=== PATIENT | male | born 1990 | race Hispanic/Latino ===

== ENCOUNTER 2017-01-19 02:00 | Emergency (ER) | payer OTHER ==
[2017-01-19] MEDS ORDERED: ZOFRAN ODT ONE (02:06)
[2017-01-19] MEDS ORDERED: ZOFRAN ODT PO ONE (02:10)
--- NOTE | 2017-01-19 04:46 | Cat Scan Report ---
FINAL REPORT PROCEDURE: CT HEAD/BRAIN WO CON TECHNIQUE: Computerized tomography of the head was performed without contrast material. HISTORY: Impact, N V, Vision issues, dizzy COMPARISON: No prior studies are available for comparison. FINDINGS: Skull and scalp: There is no skull fracture. There is right periorbital soft tissue swelling.. Paranasal sinuses: Normal. Ventricles and subarachnoid spaces: Normal. Cerebrum: No evidence of hemorrhage, acute infarction or mass . Cerebellum and brainstem: No evidence of hemorrhage, acute infarction or mass. Vasculature: Normal. Comments: None. IMPRESSION: There is right periorbital soft tissue swelling. There is no skull fracture. There is no intracranial hemorrhage.
--- NOTE | 2017-01-19 04:53 | Cat Scan Report ---
FINAL REPORT PROCEDURE: CT FACIAL BONES WO CON TECHNIQUE: Computerized tomography of the facial bones and soft tissues with axial and coronal sections performed from the cranial aspect of the frontal sinuses to the caudal portion of the mandible without contrast material. HISTORY: Impact, N V, Vision issues, dizzy COMPARISON: No prior studies are available for comparison. FINDINGS: Bones: No significant abnormality. Paranasal sinuses: There is mild mucosal thickening of the floor of the maxillary sinuses. There are no air-fluid levels.. Soft tissues: There is right periorbital soft tissue swelling.. Other: None. IMPRESSION: There is right periorbital soft tissue swelling. There is no orbital injury. There is no bony abnormality. The sinuses are clear.
--- NOTE | 2017-01-19 04:58 | Cat Scan Report ---
FINAL REPORT PROCEDURE: CT CERVICAL SPINE WO CON TECHNIQUE: Computerized tomography of the cervical spine was performed from the skull base to T1 without contrast material. HISTORY: Impact, N V, Vision issues, dizzy COMPARISON: No prior studies are available for comparison. FINDINGS: C1-2: No significant abnormality. C2-3: No significant abnormality. C3-4: No significant abnormality. C4-5: No significant abnormality. C5-6: No significant abnormality. C6-7: No significant abnormality. C7-T1: No significant abnormality. Other: There are no fractures or malalignments. The disc spaces are normal. The facet joints are intact. The prevertebral soft tissues are normal in thickness.. IMPRESSION: No significant abnormality.
[2017-01-19] MEDS ORDERED: NORCO 5/325 PO ONE (06:58)
--- NOTE | 2017-01-19 07:02 | Emergency Department Report ---
ED Head Trauma HPI - General Chief complaint: Head Injury Stated complaint: HEAD INJURY Time Seen by Provider: 01/19/17 06:51 Source: patient, RN notes reviewed Mode of arrival: Ambulatory Limitations: No Limitations - History of Present Illness Initial comments: 26-year-old male presents to the emergency department after sustaining a head injury at work. Patient does not recall the incident. He states he was told that he was struck in head by a power line. There was no loss of consciousness. Patient states he has vomited a couple of times. He reports feeling dizzy and has slightly blurred vision. He is complaining of headache, pain over his right eye, and neck pain. There are no other complaints. MD Complaint: head injury -: Sudden, During the night Mechanism of Injury: work related injury Location: face Loss of Consciousness: no Previous Trauma to this Area: No Place: work Radiation: none Severity: moderate Severity scale (0 -10): 4 Quality: aching Consistency: constant Provoking factors: none known Other Injuries: none Associated Symptoms: amnesia, vision changes, nausea, vomiting - Related Data Previous Rx's Medication Instructions Recorded Last Taken Type HYDROcodone/APAP 5-325 [[place] 1 each PO Q6HR #20 tablet 01/19/17 Unknown Rx 5-325 mg TAB] Allergies/Adverse reactions: Allergies Allergy/AdvReac Type Severity Reaction Status Date / Time fresh fruit Allergy Swelling Uncoded 01/19/17 02:13 yellow jackets Allergy Swelling Uncoded 01/19/17 02:13 ED Review of Systems ROS: Stated complaint: HEAD INJURY Other details as noted in HPI Comment: All other systems reviewed and negative Eyes: vision change Gastrointestinal: nausea, vomiting Musculoskeletal: other (neck pain) Neurological: headache, other (dizziness) ED Past Medical Hx - Past Medical History Previous Medical History?: No - Surgical History Past Surgical History?: Yes Additional Surgical History: Shoulder, Mouth, Face - Family History Family history: no significant - Social History Smoking Status: Never Smoker Substance Use Type: Alcohol - Medications Home Medications: Home Medications Medication Instructions Recorded Confirmed Last Taken Type HYDROcodone/APAP 5-325 [[place] 1 each PO Q6HR #20 tablet 01/19/17 Unknown Rx 5-325 mg TAB] ED Physical Exam - General Limitations: No Limitations General appearance: alert, in no apparent distress - Head Head exam: Present: atraumatic, normocephalic - Eye Eye exam: Present: normal appearance, PERRL, EOMI, other (approximately 1 cm laceration noted to the lateral aspect of the right upper eyelid. Wound edges appear to have spontaneously closed. There is no bleeding.) - ENT ENT exam: Present: normal exam, normal orophraynx, mucous membranes moist - Neck Neck exam: Present: normal inspection, full ROM. Absent: tenderness - Respiratory Respiratory exam: Present: normal lung sounds bilaterally. Absent: respiratory distress - Cardiovascular Cardiovascular Exam: Present: regular rate, normal rhythm, normal heart sounds - GI/Abdominal GI/Abdominal exam: Present: soft, normal bowel sounds. Absent: distended, tenderness - Extremities Exam Extremities exam: Present: normal inspection, full ROM. Absent: tenderness - Back Exam Back exam: Present: normal inspection, full ROM. Absent: tenderness - Neurological Exam Neurological exam: Present: alert, oriented X3. Absent: motor sensory deficit - Skin Skin exam: Present: warm, dry, intact ED Course Vital Signs 01/19/17 01/19/17 01/19/17 02:00 05:28 05:30 Temperature 97.6 F Pulse Rate 66 58 L 59 L Respiratory 16 9 L 12 Rate Blood Pressure 94/58 92/59 Blood Pressure 139/86 [Right] O2 Sat by Pulse 99 98 97 Oximetry 01/19/17 01/19/17 05:39 06:00 Temperature 97.7 F Pulse Rate 63 Respiratory 18 13 Rate Blood Pressure 102/49 Blood Pressure [Right] O2 Sat by Pulse 99 96 Oximetry - Radiology Data Radiology results: report reviewed, image reviewed CT of the head, facial bones, and cervical spine reveal soft tissue swelling over the right eye. There is no fracture or intracranial hemorrhage. - Medical Decision Making Imaging results reviewed and discussed with the patient. Giving medication for pain. Patient will be discharged home at this time with head injury precautions. He is instructed not to return to work until his headache and dizziness have resolved. - Differential Diagnosis fracture, closed head injury Critical care attestation.: If time is entered above; I have spent that time in minutes in the direct care of this critically ill patient, excluding procedure time. ED Disposition Clinical Impression: Closed head injury with concussion Qualifiers: Encounter type: initial encounter Loss of consciousness presence/duration: without LOC Qualified Code(s): S06.0X0A - Concussion without loss of consciousness, initial encounter Disposition: TO HOME OR SELFCARE Is pt being admited?: No Condition: Stable Instructions: Concussion (ED) Prescriptions: HYDROcodone/APAP 5-325 [[place] 5-325 mg TAB] 1 each PO Q6HR #20 tablet Referrals: PRIMARY CARE, [Primary Care Provider] - 3-5 Days Forms: Work/School Release Form(ED) Time of Disposition: 07:05
[2017-01-19 07:24] VITALS: BP 98/57
== END 2017-01-19 07:24 | disposition home or self-care (01) ==
LOC: ED 02:00
DX: S06.0X0A Concussion without loss of consciousness, initial encounter (principal); Z91.018 Allergy to other foods; W22.8XXA Striking against or struck by other objects, initial encounter; Y93.89 Activity, other specified; Y92.89 Other specified places as the place of occurrence of the external cause; Y99.8 Other external cause status
CPT/HCPCS: 70450; 70486; 72125; 99283; Q0162